=== PATIENT | male | born 1965 | race African-American/Black ===

== ENCOUNTER 2016-11-20 21:01 | Emergency (ER) | payer MEDICARE ==
[2016-11-20] MEDS ORDERED: Lidocaine 2% Jelly 5 ML TUBE ONE (21:33)
== END 2016-11-20 21:40 | disposition home or self-care (01) ==
LOC: SCSER 21:01
DX: K60.2 Anal fissure, unspecified (principal); I10 Essential (primary) hypertension; E11.9 Type 2 diabetes mellitus without complications; Z79.899 Other long term (current) drug therapy; Z79.4 Long term (current) use of insulin
CPT/HCPCS: 99283

== ENCOUNTER 2020-11-05 17:30 | Outpatient (CLI) | payer MEDICARE | END 2020-11-05 17:31 | disposition home or self-care (01) | LOC: SLEEPLAB 17:30 | PROVIDERS: ATTEND Family Medicine | DX: G47.33 Obstructive sleep apnea (adult) (pediatric) (principal); I10 Essential (primary) hypertension; R53.83 Other fatigue; R06.83 Snoring; I25.10 Atherosclerotic heart disease of native coronary artery without angina pectoris; G47.00 Insomnia, unspecified | CPT/HCPCS: 95806 ==